=== PATIENT | female | born 1985 | race Caucasian/White ===

== ENCOUNTER → 2020-06-16 | Outpatient (CLI) | payer OTHER ==
--- NOTE | 2020-06-16 16:46 | RAD ---
Examination: 1. L-spine 2 views. 2. Right knee 2 views INDICATION: Disability determination. Arthritis and hip and knee with low back pain. Right knee pain COMPARISON: No relevant comparisons currently available. FINDINGS: AP and lateral views of the lumbar spine were obtained. 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 There is mild rotatory scoliosis with suggestion of subtle retr olisthesis at L1-L2. Mild levoscoliosis, apex at L2 is present. No fracture or aggressive osseous les ions. Disc spaces are mildly narrowed at L5-S1. Sacroiliac joints are unremarkable. Possible IUD in t he lower pelvis on the AP view. Soft tissues are unremarkable. IMPRESSION: Lumbar spinal mild degenerative changes with levoscoliosis. No acute or aggressive osseous lesions no domenic. PROCEDURE: XR [id number]_RT 1-2 VIEWS STUDY DATE: 06/16/2020 CLINICAL INDICATION / HISTORY: Reason: ARTHRITIS IN HIP AND KNEE. LOW BACK PAIN. RIGHT KNEE PAIN. / S pl. Instructions: / History: . TECHNIQUE: AP, lateral views of the right knee. COMPARISON: None FINDINGS: The osseous structures are intact. The articular surfaces are smooth. The joint space is maintained. No intra-articular loose bodies. The alignment is within normal limits. The soft tiss ues are unremarkable. No obvious joint effusion. No radio-opaque foreign bodies are identified. IMPRESSION: No fracture or dislocation is identified. Electronically signed by: Justina Mathew MD (06/16/2020 4:44 PM) [id number]
== END ==
LOC: RAD 12:23
PROVIDERS: ATTEND Surgery
DX: M47.816 Spondylosis without myelopathy or radiculopathy, lumbar region (principal); M16.11 Unilateral primary osteoarthritis, right hip; M17.11 Unilateral primary osteoarthritis, right knee; M41.86 Other forms of scoliosis, lumbar region
CPT/HCPCS: 72100; 73560